=== PATIENT | female | born 1955 | race Two or more races ===

== ENCOUNTER 2023-04-20 10:30 | Day surgery (SDC) | payer OTHER ==
[~2023-04-20] VITALS: Ht 157.5 cm; Wt 67.1 kg
[~2023-04-20 10:30] MED LIST: ADULT LOW DOSE81 M1 PO; AMLODI PO; DICLOFENAC-MIS1 EAC1 PO; LIPIT PO; XYZAL5 MG PO
[2023-04-20] MEDS ORDERED: PERCOCET 5-3251 EACH PO (14:33)
[2023-04-20] MEDS ORDERED: COLACE100 MG PO (14:33)
== END 2023-04-20 17:50 | disposition home or self-care (01) ==
LOC: CIR.AMB 10:30
PROVIDERS: ATTEND Surgery
DX: C21.8 Malignant neoplasm of overlapping sites of rectum, anus and anal canal (principal); D12.8 Benign neoplasm of rectum; D12.9 Benign neoplasm of anus and anal canal; K62.5 Hemorrhage of anus and rectum; K62.89 Other specified diseases of anus and rectum; I10 Essential (primary) hypertension; Z20.822 Contact with and (suspected) exposure to COVID-19

== ENCOUNTER 2023-06-01 06:18 | Day surgery (SDC) | payer OTHER ==
[2023-05-29 11:55] LABS: PH,URINE 6.5 (5.0-8.0); URINE APPEARANCE Clear; URINE BILIRRUBIN Negative (NEGATIVE); URINE BLOOD Negative; URINE COLOR Yellow; URINE GLUCOSE Negative (NEGATIVE); URINE LEUKOCYTE Negative; URINE NITRATE Negative; URINE PROTEIN Negative (NEGATIVE)
[2023-05-29 12:01] LABS: URINE BACTERIA 83.1 uL (0.0-1933); URINE EPITHELIAL CELLS 4.4 uL (0.0-38.8); URINE WBC 3.8 uL (0.0-23.2)
[2023-05-29 12:19] LABS: INR 1.26; PARTIAL THROMBOPLASTIN TIME 29.3 SECONDS (22.0-34.0)
[2023-05-29 12:21] LABS: ALBUMIN 3.8 gm/dL (3.4-5.0); CALCIUM 9.3 mg/dL (8.5-10.1); CREATININE SERUM 0.44 mg/dL (0.55-1.02); GFR 142.63; PHOSPHOROUS 4.4 mg/dL (2.5-4.9); POTASSIUM 4.09 mEq/L (3.5-5.1)
[~2023-06-01 06:18] MED LIST changes: +COLACE100 MG PO; +LIPITOR40 MG; +METFORMIN HCL1000 M2; +NORVASC2.5 M1 PO; +PERCOCET 5-3251 EACH PO; +ZESTORETIC 10-1 EACH
[2023-06-01] MEDS ORDERED: TRAM1TAB98 PO (08:26)
== END 2023-06-01 11:00 | disposition home or self-care (01) ==
LOC: CIR.AMB 06:18
PROVIDERS: ATTEND Surgery
DX: C21.1 Malignant neoplasm of anal canal (principal); K62.5 Hemorrhage of anus and rectum; K62.89 Other specified diseases of anus and rectum; I10 Essential (primary) hypertension; Z20.822 Contact with and (suspected) exposure to COVID-19